=== PATIENT | female | born 1995 | race Two or more races ===

== ENCOUNTER 2024-07-05 19:35 | Emergency (ER) | payer OTHER, SELFPAY ==
[2024-07-05 19:38] VITALS: BMI 24.2
[2024-07-05 19:58] VITALS: BP 120/68; PULSE 60; RESP 18; TEMP 37.5; O2SAT 100
--- NOTE | 2024-07-05 20:04 | XR_ITS ---
Examination: Abdomen sonogram, Limited Date and time of exam: July 05, 2024 2012 hours INDICATIONS: Nausea vomiting beginning one week ago Technique: Real-time gutierrez scale transabdominal sonographic images of the upper abdomen obtained. Findings: Minimal gallbladder sludge No gallstones Gallbladder wall is not thickened Common bile duct 0.4 cm Pancreatic head 2.2 cm Liver 12.8 cm smooth contour and no focal liver lesions Normal hepatopedal portal venous flow Patent IVC IMPRESSION: Minimal gallbladder sludge Negative for cholelithiasis, negative for cholecystitis
[2024-07-05] MEDS: ONDANSETRON ODT 4 MG TABRAP PO (20:09)
--- NOTE | 2024-07-05 20:44 | PD.EDRME ---
Rapid Medical Screening Exam RME Arrival date/time: 07/05/24 19:35 29-year-old female presents to the emergency department today for complaints of nausea vomiting ongoing since Tuesday Chief Complaint: Nausea/Vomiting/Diarrhea Time Seen by Provider: 07/05/24 20:01 Vital signs: Vital Signs Temperature 99.5 F 07/05/24 19:58 Pulse Rate 60 07/05/24 19:58 Respiratory Rate 18 07/05/24 19:58 Blood Pressure 120/68 07/05/24 19:58 Pulse Oximetry (%) 100 07/05/24 19:58 Oxygen Delivery Method Room Air 07/05/24 19:58
[2024-07-05 21:14] LABS: Collection Type, Urine Clean Catch; WBC,Urine 0 /hpf (0-5)
[2024-07-05 21:24] LABS: Basophils # (Auto) 0.1 Thou/mm3 (0.0-0.2); Basophils % (Auto) 1 % (0-2.5); Eosinophils % (Auto) 0 % (0-10); Hematocrit 39.6 % (36.0-46.0); Hemoglobin 14.3 g/dL (12.0-16.0); Immature Granulocytes % (Auto) 1 % (0-0); Immature Granulocytes Auto 0.05 Thou/mm3 (0.00-0.00); Lymphocytes # (Auto) 1.2 Thou/mm3 (1.0-4.8); Lymphocytes % (Auto) 12 % (10-50); Mean Corpuscular HGB Conc 36.1 g/dl (31.0-37.0); Mean Corpuscular Hemoglobin 29.3 pg (25.0-35.0); Mean Corpuscular Volume 81 fL (80-100); Monocytes # (Auto) 0.3 Thou/mm3 (0.0-0.8); Monocytes % (Auto) 3 % (0-12); Neutrophils # (Auto) 8.4 Thou/mm3 (1.8-7.7); Neutrophils % (Auto) 84 % (37-80); Nucleated Red Blood Cell % 0 /100 WBC (0); Platelet Count 331 Thou/mm3 (140-440); RDW Standard Deviation 36.4 fL (36.4-46.3); Red Blood Count 4.88 Miln/mm3 (4.00-5.20)
[2024-07-05 21:29] LABS: Bilirubin,Urine Negative (Negative); Blood,Urine Trace (Negative); Clarity,Urine Clear (Clear/Hazy); Color,Urine Yellow (Lt Yel-Yel); Culture Indicated,Urine Not Indicated; Glucose, Urine Negative (Negative); Ketones,Urine 4+ (Negative); Leukocyte Esterase,Urine Negative (Negative); Nitrite,Urine Negative (Negative); Protein,Urine Trace (Neg - Trace); RBC,Urine 2 /hpf (0-3); Specific Gravity,Urine 1.027 (1.001-1.035); Squamous Epithelial Cell,Urine 1 /hpf (0-5)
[2024-07-05 21:30] LABS: HCG Qualitative,Urine Negative
[2024-07-05 21:43] LABS: Alanine Aminotransferase 15 U/L (10-49); Albumin, Serum 4.9 gm/dL (3.5-5.0); Alkaline Phosphatase 63 U/L (46-116); Anion Gap 10 (7-16); Aspartate Amino Transferase 14 U/L (0-34); BUN/Creatinine Ratio 15 Ratio (12-20); Bilirubin,Total 0.9 mg/dL (0.3-1.2); Blood Urea Nitrogen 12 mg/dL (9-23); Calcium 9.4 mg/dL (8.3-10.6); Calcium (Corrected) 9.4 mg/dL (8.5-10.1); Carbon Dioxide 25.1 mMol/L (20.0-31.0); Chloride 103 mMol/L (98-107); Creatinine (Component) 0.8 mg/dL (0.6-1.3); Estimated Creatinine Clearance 78.8 mL/min (>60); Globulin 2.5 gm/dL (2.3-3.5); Glucose 111 mg/dL (74-106); Lipase 59 U/L (12-53); Osmolality,Calculated 276 (275-295); Potassium 3.6 mMol/L (3.4-5.1); Sodium 138 mMol/L (136-145); Total Protein 7.4 gm/dL (5.7-8.2); eGFR > 60 See Note
--- NOTE | 2024-07-05 22:04 | EDNOTE_ITS ---
Nausea/Vomit./Diarrhea-RME/HPI General Chief complaint: Nausea/Vomiting/Diarrhea Stated complaint: NV Time Seen by Provider: 07/05/24 20:01 Arrival date/time: 07/05/24 19:35 Limitations: no limitations RME / HPI RME / HPI Narrative: 07/05/24 19:35 29-year-old female presents to the emergency department today for complaints of nausea vomiting ongoing since Tuesday Related Data Previous Rx's ?Medication ?Instructions ?Recorded ondansetron 4 mg disintegrating 4 mg PO Q8H #10 tabs 0 07/05/24 tablet Allergies Allergy/AdvReac Type Severity Reaction Status Date / Time No Known Allergies Allergy Verified 07/05/24 19:42 Review of Systems Constitutional Constitutional: Reports system reviewed and no additional complaints, except as documented and Reports as per HPI Eyes Eyes: Reports system reviewed and no additional complaints, except as documented, Denies dry eyes, Denies exophthalmos and Reports floaters Cardiovascular Cardiovascular: Reports system reviewed and no additional complaints, except as documented, Reports as per HPI, Denies chest pain with activity and Denies claudication Respiratory Respiratory: Reports system reviewed and no additional complaints, except as documented and Reports as per HPI Gastrointestinal Gastrointestinal: Reports system reviewed and no additional complaints, except as documented and Reports as per HPI Genitourinary Genitourinary: Reports system reviewed and no additional complaints, except as documented and Reports as per HPI Musculoskeletal Musculoskeletal: Reports system reviewed and no additional complaints, except as documented and Reports as per HPI Integumentary/Breasts Skin/Breast: Reports system reviewed and no additional complaints, except as documented and Reports as per HPI Neurologic Neurologic: Reports system reviewed and no additional complaints, except as documented and Reports as per HPI Past Medical History Past Medical History Comments H COMMENT: Patient denies any significant past medical history ED Exam General Limitations: Present no limitations General appearance: Present alert and in no apparent distress Head Head exam: Present atraumatic Eye Eye exam: Present normal appearance, PERRL and EOMI ENT ENT exam: Present normal exam, normal oropharynx and mucous membranes moist Neck Neck exam: Present normal inspection, full ROM and trachea midline Chest Chest inspection: Present normal inspection and symmetric chest wall rise Respiratory Respiratory exam: Present normal lung sounds bilaterally Cardiovascular Cardiovascular exam: Present regular rate, normal rhythm and normal heart sounds Abdominal Exam Abdominal exam: Present soft, distention, tenderness (Patient has a negative Brewster's sign. The abdomen is soft nontender without any apparent masses. There is negative rebound tenderness.) and normal bowel sounds Extremities Exam Extremities exam: Present normal inspection and full ROM Back Exam Back exam: Present normal inspection and full ROM Neurological Exam Neurological exam: Present alert, oriented X3 and CN II-XII intact Psychiatric Psychiatric exam: Present normal affect and normal mood Skin Skin exam: Present warm, dry, intact and normal color Course Course Course Narrative: Patient will have Zofran 4 mg. And a abdominal pain workup will be ordered. Quality Measures none Orders Category Date Time Status US abdomen limited Stat Exams 07/05/24 20:04 Completed CBC Stat Lab 07/05/24 21:11 Completed Comprehensive Metabolic Panel Stat Lab 07/05/24 21:11 Completed HCG Qualitative,Urine Stat Lab 07/05/24 20:45 Completed Lipase Stat Lab 07/05/24 21:11 Completed UA, C/S IF [Urinalysis, C/S if Indicated] Stat Lab 07/05/24 20:45 Completed Ondansetron Odt [Zofran Odt] Med 07/05/24 20:04 Discontinued 4 mg PO X1 ONE Vital Signs Vital signs: Vital Signs Temperature 99.5 F 07/05/24 19:58 Pulse Rate 60 07/05/24 19:58 Respiratory Rate 18 07/05/24 19:58 Blood Pressure 120/68 07/05/24 19:58 Pulse Oximetry (%) 100 07/05/24 19:58 Oxygen Delivery Method Room Air 07/05/24 19:58 Pulse ox room air is 100% Nausea/Vomiting/Diarrhea Patient data External records reviewed:: Other (specify) Clinical information provided by:: patient Social determinants that could affect healthcare access:: none Patient has the following chronic illnesses:: N/A How is presenting disease/condition affected by chronic disease/condition?: no chronic disease Evaluation data The following diagnostics were reviewed and interpreted by me:: lab results and radiology exam(s) Lab and/or radiology exams considered but not ordered:: Lab results as well as the radiology results were related to the patient. Interpretation Summary: N/A Medications / Prescriptions Medications / Prescriptions considered but not ordered:: Zofran Medication administrations:: Medication Administration History Discontinued Medications Ondansetron HCl (Ondansetron Odt 4 Mg Tabrap) 4 mg PO X1 ONE; Protocol Stop: 07/05/24 20:05 Last Admin: 07/05/24 20:09 Dose: 4 mg Documented By: OA Given Consultations Consultation(s) initiated? (list below): No Diagnosis Nausea Differential Diagnosis: traveler's diarrhea, food poisoning, gastroenteritis, clostridium difficile infection and other Most likely diagnosis given after review of the tests above:: N/A Admission Indicated Admission indicated?: not indicated Admission Request Was there a request for admission?: No Disposition Plan Disposition Plan: Discharge Discharge Attestation Discharge Attestation: The patient and all family members were given an opportunity to ask questions and understood the discharge instructions. Discharge instructions specifically effects, indications for sooner follow up or return to the emergency department, and the expected course of current diagnosis. Patient condition: Stable Discharge Plan Plan Patient Disposition: HOME (Self Care) Discharge Disposition comment: Patient discharged in no apparent distress Patient condition on transfer: Stable Prescriptions/Referrals Prescriptions/Med Rec: New ondansetron 4 mg tablet,disintegrating 4 mg PO Q8H Qty: 10 0RF Referrals: No Primary/Family,Physician [Primary Care Provider] - In 1 week Problem List Clinical Impression: Vomiting Patient/Caregiver Discharge Instructions Education Materials: ED Diet for Vomiting or ... Print Language: Turkish VITA/JAIRO Supervising Physician VITA/JAIRO Supervising Physician: negra
--- NOTE | 2024-07-05 22:04 | PD.EDRME ---
Rapid Medical Screening Exam RME Arrival date/time: 07/05/24 19:35 07/05/24 19:35 29-year-old female presents to the emergency department today for complaints of nausea vomiting ongoing since Tuesday Chief Complaint: Nausea/Vomiting/Diarrhea Time Seen by Provider: 07/05/24 20:01 Vital signs: Vital Signs Temperature 99.5 F 07/05/24 19:58 Pulse Rate 60 07/05/24 19:58 Respiratory Rate 18 07/05/24 19:58 Blood Pressure 120/68 07/05/24 19:58 Pulse Oximetry (%) 100 07/05/24 19:58 Oxygen Delivery Method Room Air 07/05/24 19:58 RME Narrative: 07/05/24 19:35 29-year-old female presents to the emergency department today for complaints of nausea vomiting ongoing since Tuesday
== END 2024-07-05 22:38 | disposition home or self-care (01) ==
PROVIDERS: Nurse Practitioner Primary Care; Emergency Provider Family Medicine
DX: R11.2 Nausea with vomiting, unspecified (principal); R19.7 Diarrhea, unspecified
CPT/HCPCS: 36415; 76705; 80053; 81001; 81025; 83690; 85025; 99284; Q0162